=== PATIENT | male | born 1980 | race Caucasian/White ===

== ENCOUNTER 2018-02-14 12:33 | Inpatient (IN) | payer OTHER, MEDICAID ==
[2018-02-14] MEDS ORDERED: PROPARACAINE 0.5% 15 ML OPHT DROP OP ONE (13:41)
--- NOTE | 2018-02-14 14:04 | EDPHY ---
H & P Stated Complaint: pt c/o visual changes, hx of MS Time Seen by Provider: 02/14/18 13:28 HPI/ROS: Chief Complaint: Blurry vision, eye pain HPI: 37-year-old male with a history of multiple sclerosis is presenting with 4 days of worsening blurry vision and eye pain. Patient states symptoms are bilateral. He states that his central vision seems normal but his peripheral vision seems blurred. He is also having pain in the back of his eyes. No new numbness or weakness. He is seen by the neurologist in [place] however his or neurologist recently moved out of critical access hospital. He gets monthly Tysabri which she is scheduled for in 2 days. At baseline has some occasional urinary and stool incontinence which is unchanged. Has had some mild crusting discharge from his eyes. No itching. Is not been rubbing them. ROS: 10 point Review of Systems is negative except as noted in the HPI. PMH: Multiple sclerosis Social History: No smoking, no alcohol, no recreational drug use Family History: non-contributory Physical Exam: Gen: Awake, Alert, No Distress HEENT: Nose: no rhinorrhea Eyes: PERRLA, EOMI Visual Acuity: 20/20 OU EOM: Intact OU Visual Khan: Intact OU Pupil: Equal, round and reactive to light and accomodation OU External: Lids, lashes and margins normal OU Fundoscopy; patient unable to tolerate OU Slit Lamp; Normal Conjuctiva, Iris normal, Cornea normal, Anterior chambers clear without cells or flare, no hyphema, normal angles Tonometry: 19 in both eyes Mouth: Moist mucosa Neck: Supple, no JVD Chest: nontender, lungs clear to auscultation Heart: S1, S2 normal, no murmur Abd: Soft, non-tender, no guarding Back: no CVA tenderness, no midline tenderness Ext: no edema, non-tender Skin: no rash Neuro: CN II-XII intact, Sensation grossly intact, Strength 5/5 in bilateral upper and lower extremities - Personal History Current Tetanus Diphtheria and Acellular Pertussis (TDAP): Yes - Medical/Surgical History Hx Asthma: No Hx Chronic Respiratory Disease: No Hx Diabetes: No Hx Cardiac Disease: No Hx Renal Disease: No Hx Cirrhosis: No Hx Alcoholism: No Hx HIV/AIDS: No Hx Splenectomy or Spleen Trauma: No Other PMH: Multiple sclorosis - Social History Smoking Status: Former smoker Constitutional: Initial Vital Signs Temperature (C) 36.8 C 02/14/18 12:40 Heart Rate 105 H 02/14/18 12:40 Respiratory Rate 16 02/14/18 12:40 Blood Pressure 123/82 H 02/14/18 12:40 O2 Sat (%) 95 02/14/18 12:40 O2 Delivery Mode Room Air Allergies/Adverse Reactions: paroxetine [From Paxil] Allergy (Verified 02/14/18 12:38) Home Medications: Medication Instructions Recorded Celexa 02/14/18 Seroquel 02/14/18 Testosterone Cypionate 02/14/18 Tysabri 02/14/18 Vyvanse 02/14/18 Medical Decision Making ED Course/Re-evaluation: Case discussed with Dr. Dean Gordon, neurology. He is recommending that given the patient's history of MS in his symptomatology that he had be admitted for high-dose steroids. He will order MRIs and plan on consulting on the patient tomorrow. I have discussed with Dr. Lopez, hospitalist. She will admit to her service for continued care. - Data Points Medications Given: Discontinued Medications Proparacaine HCl (Alcaine 0.5%) 1 drops OP EDNOW ONE Stop: 02/14/18 13:42 Last Admin: 02/14/18 13:55 Dose: 1 drop Departure - Departure Disposition: [facility] Inpatient Acute Clinical Impression: Multiple sclerosis Condition: Fair Referrals: Karen Bryant MD [Primary Care Provider] - As per Instructions
[2018-02-14] MEDS ORDERED: ONDANSETRON DISINTEGRATING 4 MG TAB PO PRN (14:50)
[2018-02-14] MEDS ORDERED: ACETAMINOPHEN 325 MG TAB PO PRN (14:50)
[2018-02-14] MEDS ORDERED: ONDANSETRON 4 MG/2 ML VIAL IVP PRN (14:50)
[2018-02-14 15:11] LABS: PLATELET COUNT 208 10^3/uL (150-400)
[2018-02-14] MEDS ORDERED: CHOLECALCIFEROL 10000 UNIT PO SCH (15:30)
--- NOTE | 2018-02-14 16:00 | GHP ---
[f rep st] HISTORY AND PHYSICAL DATE OF ADMISSION: 02/14/2018 CHIEF COMPLAINT: Blurry vision, eye pain. HISTORY OF PRESENT ILLNESS: A 37-year-old male, history of multiple sclerosis, presenting with 1 week of progressive blurry vision and eye pain. He describes the pain in his eye as a headache behind his eyes, pulsating in nature. His vision has become progressively blurry, specifically in the periphery. Notes increased light sensitivity. He has had some drainage from his eyes that he thinks is clear. There has been a little bit of crusting at the corner, but not to the degree where his eyes are glued shut in the morning. Denies fevers, chills, or sweats. No nausea, vomiting, diarrhea. No numbness, tingling, falls. Has never been hospitalized before for multiple sclerosis. REVIEW OF SYSTEMS: I completed a 10-point review of systems, negative except as noted in the HPI. PAST MEDICAL HISTORY: 1. Multiple sclerosis, diagnosed in 2003. 2. Hypogonadism. 3. Vitamin D deficiency. 4. Bipolar type 1. 5. Depression. 6. ADHD. 7. Prior heavy alcohol use, now in AA. PAST SURGICAL HISTORY: None. FAMILY HISTORY: Maternal grandfather with diabetes. Paternal grandfather with CA, mental illness. SOCIAL HISTORY: Lives in [place]. 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 Has a master's degree. Vapes daily. No illicits or alcohol. HOME MEDICATIONS: Ibuprofen as needed, fish oil, multivitamin, Vyvanse 40 mg daily, vitamin D 10,000 units daily, Tysabri 300 mg IV q.28 days, testosterone 100 mg IM q.5 days, Seroquel 800 q.h.s., citalopram 40 daily. PHYSICAL EXAMINATION: VITAL SIGNS: Temperature 36.8, blood pressure 123/70, heart rate is 100, respirations 16, 95% on room. GENERAL: Well-appearing male , sitting up in bed, no acute distress. HEENT: PERRLA. Mild erythema at the corners of each eye. No purulence. No conjunctival injection. CV: Regular rate and rhythm. No murmurs, gallops, or rubs. LUNGS: Clear. ABDOMEN: Soft , nontender, nondistended. Positive bowel sounds. : No Correa. MUSCULOSKELETAL: 5/5 upper and lower extremity strength. NEUROLOGIC: Normal sensation to touch. 2 through 12 intact. PSYCH: Alert and oriented x3. LABORATORY DATA: WBC 9, hemoglobin 16, hematocrit 45, platelets 208. Sodium 141, potassium 4.3, chloride 103, carbon dioxide 28, BUN 13, creatinine 0.8, glucose 79, calcium 9.8. ASSESSMENT/PLAN: 1. Eye pain/blurry vision: concern for multiple sclerosis flare. Dr. Darnell spoke with Dr. Gordon who will formally evaluate the patient. MRI pending, start 1g Solu-Medrol daily. Does not appear to have conjunctivitis, but will provide Refresh eyedrops. 2. Hypogonadism. Testosterone q.5 days. 3. Bipolar 1 disorder. Resume home medications. 4. ADHD: he does not have Vyvanse with him. Will treat with Adderall here. May need to increase dose. 5. Vitamin D deficiency. Continue home supplementation. 6. Nicotine dependence: Nicotine patch. 7. Diet: Regular. 8. DVT prophylaxis: Low risk, ambulatory. DISPOSITION: Patient warrants inpatient admission given concern for acute multiple sclerosis flare warranting high-dose IV steroids for 3 days and a neurology consultation. /[id number]/MODL MTDD
[2018-02-14] MEDS: NICOTINE POLACRILEX 2 MG GUM B PRN ×3 (16:36→23:32)
--- NOTE | 2018-02-14 16:40 | PDMN ---
Medical Necessity Medical necessity: C/M review: Patient meets INPT criteria under [facility] Neurology GRG (Multiple scletrosis): Acute multiple sclerosis flare - acute and progressive eye pain/ blurry vision requiring planned Neurology consult, ongoing high dose IV Methylprednisolone QD for three days, comorbid one week of progressive blurry and eye pain prior to this admission, history of multiple sclerosis diagnosed in 2003, hypogonadism, bipolar 1 disorder, attention deficit hyperactivity disorder, vitamin D deficiency, nicotent dependence and prior heavy alcohol use, patient in AA. anticipates > 2 [place] LOS for ongoing med nec for eval and TX of above.
[2018-02-14] MEDS ORDERED: GADOBUTROL 10 ML VIAL IVP ONE (16:58)
[2018-02-14] MEDS ORDERED: ADDERALL 10 MG TAB PO SCH ×2 (17:28→17:30)
[2018-02-14] MEDS: methylPREDNISolone SOD SUCC 1 GM in D5W 100 ML IV SCH (18:03)
[2018-02-14] MEDS: OMEGA-3 FATTY ACIDS 1,000 MG CAP PO SCH (20:13)
[2018-02-14] MEDS: CARBOXYMETHYLCELLULOSE 1% 0.4 ML DROPERETTE EACHEYE PRN (20:21)
[2018-02-14] MEDS ORDERED: OMEGA PO SCH (21:00)
[2018-02-14] MEDS ORDERED: EPA PO SCH (21:00)
[2018-02-14] MEDS ORDERED: FISH OIL PO SCH (21:00)
[2018-02-14] MEDS ORDERED: DHA PO SCH (21:00)
[2018-02-14] MEDS: QUEtiapine FUMARATE 200 MG TAB PO SCH (23:33)
[2018-02-15] MEDS ORDERED: ADDERALL 10 MG TAB PO SCH (08:00)
[2018-02-15] MEDS ORDERED: NON-FORMULARY NEW DRUG (Citalopram Hydrobromide [Celexa] 40 MG) PO SCH (09:00)
[2018-02-15] MEDS: CITALOPRAM 20 MG TAB PO SCH (09:12)
[2018-02-15] MEDS: CHOLECALCIFEROL VIT D3 2,000 UNITS TAB/CAP PO SCH (09:13)
[2018-02-15] MEDS: OMEGA-3 FATTY ACIDS 1,000 MG CAP PO SCH ×2 (09:13→21:32)
[2018-02-15] MEDS: MULTIVITAMINS 1 EACH TAB PO SCH (09:13)
[2018-02-15] MEDS: CARBOXYMETHYLCELLULOSE 1% 0.4 ML DROPERETTE EACHEYE PRN ×2 (09:19→13:51)
[2018-02-15] MEDS: NICOTINE POLACRILEX 2 MG GUM B PRN ×6 (09:31→18:57)
--- NOTE | 2018-02-15 12:08 | NEUROPROG ---
Assessment: Jose [id number] - Neurology Consult: - CC: Dr. Kar Lopez consulted neurology for multiple sclerosis. Results placed in EMR for her review. - HPI: Pt with history of multiple sclerosis treated with Tysabri (has neurologist in [place], [place]) reported 1 week of progressive bilateral blurry vision and retro- orbital eye pain. His brain MRI w/ and w/o con on 02/14/18 showed changes consistent with mild chronic demyelinating disease but no acute enhancement. I initially saw the patient on 02/15/18. I had completed 1 day of IV steroids and felt his retro-orbital pain was improving but his visual blurriness was still present. He otherwise denied complaints. - PMHx: multiple sclerosis 2003, hypogonadism, bipolar, Vit D def, depression, ADHD - Home Meds: vyvanse, tysabri, testosterone, seroquel, celexa - SHx: prior alcoholism FHx: DM, DC, mental illness - ROS: Pt denied acute fever, total vision loss, active severe chest pain, respiratory failure, total body severe rash, total bowel/bladder incontinence, psychosis, active seizures, or active bleeding - O: VS reviewed General: Alert Eyes: Fundoscopic exam not able to visualize optic disks CV: Heart RRR, no murmur, no carotid bruit Lungs: Clear to auscultation bilaterally, no rhonchi or rales Neuro: - Mental: . Oriented x person/place/date . concentration appears normal . speech fluency/comprehension normal . memory appears normal . fund of knowledge appear intact - Cranial Nerves: . II: PERRL, VFFTC . III/IV/: EOMI, no nystagmus, normal smooth pursuits, no Ptosis . V: facial sensation intact to LT . VII: face symmetric to eye closure and smile . VIII: hearing intact to conversation . IX/X: uvula raises symmetrically . XI: SCM 5/5 B/L strength . XII: tongue protrudes midline w/nl strength - Motor: . Tone: normal tone in all 4 extremity . 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 No evidence of active demyelinating lesion. No involvement of the midbrain or cerebellum. No acute intracranial process. Specifically, no hemorrhage, ischemia, or mass. (I personally visualized the images on 02/15/18) - Assessment: 1. Multiple Sclerosis with presumed exacerbation on 02/14/18: Normal neurologic exam on 02/15/18. Brain MRI w/ and w/o con on 02/14/18 showed no contrast enhancing lesions. I still suspect his symptoms are an exacerbation of his known multiple sclerosis. I will complete 3 days of IV steroids and have him establish with our group multiple sclerosis expert after discharge. - Plan: - Solumederol 1,000 mg/day x 3 for presumed MS exacerbation, patient can discharge after completing this if he is doing well - F/U with Dr. Joby Muhammad or Kamaljit Pace 1-4 weeks after hospital discharge to manage multiple sclerosis and Tysabri Objective: Vital Signs Temp Pulse Resp BP Pulse Ox 36.8 C 125 H 16 128/84 H 95 02/15/18 11:32 02/15/18 11:32 02/15/18 11:32 02/15/18 11:32 02/15/18 11:32 Laboratory Results 02/14/18 15:00 02/14/18 15:00 02/14/18 02/15/18 02/16/18 05:59 05:59 05:59 Intake Total 500 Balance 500 Allergies/Adverse Reactions: paroxetine [From Paxil] Allergy (Verified 02/14/18 12:38)
[2018-02-15] MEDS: ADDERALL 20 MG TAB PO SCH (13:49)
--- NOTE | 2018-02-15 14:54 | HOSPPROG ---
Hospitalist Progress Note Assessment/Plan: 37y male with eye pain. First encounter, chart reviewed. D/W Dr Gordon #Blurry/pain eye -possible related to MS #MS -Appreciate Dr Gordon consult -cont IV steriods -one more dose 02/16/18 #ADHD -adderall #Bipolar -cont meds #Hx ETOH -sober #Dispo -home in afternoon tomorrow after steriods Subjective: Feeling better. Still blurry vision. Objective: Vital Signs Temp Pulse Resp BP Pulse Ox 36.8 C 125 H 16 128/84 H 95 02/15/18 11:32 02/15/18 11:32 02/15/18 11:32 02/15/18 11:32 02/15/18 11:32 Laboratory Results 02/14/18 15:00 02/14/18 15:00 02/14/18 02/15/18 02/16/18 05:59 05:59 05:59 Intake Total 500 Balance 500 - Physical Exam Constitutional: no apparent distress, appears nourished, not in pain Eyes: PERRL, anicteric sclera, EOMI Ears, Nose, Mouth, Throat: moist mucous membranes, hearing normal, ears appear normal Cardiovascular: No JVD, No tachycardia, No edema Respiratory: no respiratory distress, no rales or rhonchi, clear to auscultation Gastrointestinal: normoactive bowel sounds, No tenderness, No ascites Skin: warm, normal color, No mottled Neurologic: AAOx3 Psychiatric: interacting appropriately, not anxious, not encephalopathic, thought process linear ICD10 Worksheet Patient Problems: Problems Problem Status Onset Multiple sclerosis Acute
--- NOTE | 2018-02-15 15:32 | ASMTCMCOM ---
CM Note CM Note Notes: Chart reviewed Met with patient at length. He has bipolar disorder and is having trouble dealing with stressors . 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 Now that he is hospitalized they will attempt to draw money from his account. He is active with AA now. He wants a prescription for adderall at discharge, he currently sees Dr. Snider. Physically he moved independently, He will likely have no therapy needs. He has medicaid. He wants to look into housing that would provide him more social support. I suggested he look in to this process via [employer] or Food And Beverage Assistant at discharge. Likely no needs. Plan: TBD Date Signed: 02/15/2018 03:32 PM Electronically Signed By:Maribell Miguel RN
[2018-02-15] MEDS: methylPREDNISolone SOD SUCC 1 GM in D5W 100 ML IV SCH (16:10)
[2018-02-15] MEDS: QUEtiapine FUMARATE 200 MG TAB PO SCH (23:19)
--- NOTE | 2018-02-16 08:48 | NEUROPROG ---
Assessment: The patient has multiple sclerosis based on all the information we have, although we will ultimately want to see the outside records for clarification of some of the details. He has been stable and presented with radiographic findings rather than a clinical presentation for multiple sclerosis. Although fatigue is in extremely common complaint to multiple sclerosis, it would not usually be the presenting reason for the diagnosis to be made. However, he is now having some ocular complaints concerning for possible optic neuritis so it was felt justified to use IV Solu-Medrol for 3 days given the fact that he is also taking Tysabri. He reports that he is FREDDY virus antibody negative. I have reviewed this MRI in the hospital and he has no evidence of acute, active lesions but multiple bilateral periventricular and deep white matter lesions entirely consistent with the diagnosis of multiple sclerosis. He has a history of bipolar disease for which she has had 2 hospitalizations for acute fernando but says that he has a tendency to experience depression. Just several months ago he was hospitalized with fernando. He has a history of alcoholism for which she describes sobriety for 10 years with perhaps only 1 relapse. As recently as 4 months ago he had been using methamphetamine for several months and recognizes his addiction. He also has a history of heavy smoking of marijuana. He reports having multiple psychiatrists over the years but is not currently under the care of a psychiatrist and tells me that his new primary care provider, Dr. Ирина Bryant, has agreed to manage his psychoactive medications at this time, including stimulant medication. The patient says he had an open discussion on this issue and has requested that he have weekly follow-ups to help prevent him from the risk of recurrent addiction or abuse of medication. I explained to the patient that I believe he would be most appropriate for him to be under the care of a psychiatrist given his history of bipolar illness and hospitalization within the last 6 months for acute fernando, but he is going to try and work with primary care on this issue for now. I will copy my report to Dr. Bryant. I also made it clear to the patient who that I would not prescribe stimulant medications for him. If Dr. Bryant or a managing psychiatrists choose to prescribe the medications, then that is between the patient and his other physicians. I told him that with multiple sclerosis, there is a tendency for any stimulant medication to lose its benefits and then lead to further problems of getting off of the medication or potential for drug escalation which could be detrimental to his health in the long run. Occasionally drugs like amantadine can be helpful for fatigue but that usually does not have a sustained benefit. I would emphasize non pharmacologic approaches to help him address his fatigue like regular exercise and adequate rest. Of course, management of attention deficit disorder and bipolar illness are critical, and these are outside of my scope of practice, so I would again defer to Psychiatry or Dr. Bryant. I will be happy for him to follow up with Beto Pace and myself for the management of multiple sclerosis with follow-up imaging and arranging for the infusions with Gita terry. I told him to call the office to set up a follow-up appointment with Beto so we can help facilitate this. He agreed to this approach. Total unit time today of 30 min reviewing these issues as outlined above. The patient may be discharged today and should have a prednisone taper over the next week giving 40 mg for 2 days, 20 mg for 2 days, 10 mg for 2 days and then discontinue the steroid. Subjective: I have reviewed the patient's case and discussed in great detail his history of multiple sclerosis and treatment strategies that have been tried over time as well as his current concerns and questions. He is on his 3rd day out of 3 days of planned IV Solu-Medrol for possible optic neuritis with eye pain. He says that he still has some eye pain with eye movements. His original diagnosis of multiple sclerosis came about 4 years ago via a coincidental finding of lesions on the brain when he was being investigated for pituitary problems related to low testosterone. His main complaint at that time had been generalized sense of fatigue. He was working with Endocrinology. He also had an episode of diffuse body itching for which he never knew why. In retrospect, he has wondered if that might have been part of multiple sclerosis. In any case, brain imaging had shown brain lesions consistent with multiple sclerosis even though he had not had a distinct clinical event. Further investigations with follow-up imaging as well as lumbar spinal fluid analysis has reportedly shown changes of multiple sclerosis. After seeing a [place] neurologist he sought another opinion in [facility] with an multiple sclerosis expert who also confirmed the diagnosis as definite multiple sclerosis in his opinion and the patient had been further sharing images with a relative who is a radiologist. His 1st treatment about 4 years ago was with Copaxone but he had systemic, uncomfortable side effects and stopped that and also similar inability to tolerate Tecfidera. About 3 and half years ago he started on the Tysabri. He is continued these infusions in the [place] area but his [place] neurologist has now left to go back to [place] and he needs to establish with a new neurologist. He was seen yesterday by Dr. Gordon, who is recommending follow-up with me and with our physician teachers assistant for the longer term multiple sclerosis management. He is due for his next infusion tomorrow, but he is deferring that and will make arrangements for that in [place] prior to our transferring the infusions of the Tysabri to [place]. Objective: Vital Signs Temp Pulse Resp BP Pulse Ox 36.7 C 106 H 15 137/73 H 95 02/16/18 08:00 02/16/18 08:00 02/16/18 08:00 02/16/18 08:00 02/16/18 08:00 Laboratory Results 02/14/18 15:00 02/14/18 15:00 02/15/18 02/16/18 02/17/18 05:59 05:59 05:59 Intake Total 500 1500 Balance 500 1500 Pupils are 4 mm and reactive. Extraocular movements are intact. He is alert and attentive with clear and fluent speech. Allergies/Adverse Reactions: paroxetine [From Paxil] Allergy (Verified 02/14/18 12:38)
[2018-02-16] MEDS: CITALOPRAM 20 MG TAB PO SCH (09:04)
[2018-02-16] MEDS: CHOLECALCIFEROL VIT D3 2,000 UNITS TAB/CAP PO SCH (09:04)
[2018-02-16] MEDS: NICOTINE POLACRILEX 2 MG GUM B PRN ×7 (09:04→17:23)
[2018-02-16] MEDS: ADDERALL 20 MG TAB PO SCH ×2 (09:05→13:53)
[2018-02-16] MEDS: OMEGA-3 FATTY ACIDS 1,000 MG CAP PO SCH (09:05)
[2018-02-16] MEDS: MULTIVITAMINS 1 EACH TAB PO SCH (10:08)
--- NOTE | 2018-02-16 12:06 | HOSPPROG ---
Hospitalist Progress Note Assessment/Plan: 37y male with eye pain. First encounter, chart reviewed. Reviewed Dr. Muhammad consult note today. Appreciate his guidance and input # concern for optic neuritis Blurry/pain eye -possible related to MS -today is day # 3 for high dose IV steroids -pain is gone, but still has some blurriness -will have him see and Cheese Production Supervisor #MS -to f/u with Beto STRANGE with the neurology group -he was scheduled to get an infusion of Tysabri in [place], but has moved to [place] and wants to get his care here #ADHD -Adderall -concern about this medication in the setting of his Bipolar disorder -he doesn't want to see a psychiatrist -feels very comfortable with Dr Bryant and wants to work with him #Bipolar -cont meds #Hx ETOH -sober #Dispo -dc today after he gets his IV infusion. Will give him the phone # of a local eye doctor, has an appointment with Dr Bryant this Friday. Subjective: Richie feels overall much better today. Objective: Vital Signs Temp Pulse Resp BP Pulse Ox 36.7 C 106 H 15 137/73 H 95 02/16/18 08:00 02/16/18 08:00 02/16/18 08:00 02/16/18 08:00 02/16/18 08:00 Laboratory Results 02/14/18 15:00 02/14/18 15:00 02/15/18 02/16/18 02/17/18 05:59 05:59 05:59 Intake Total 500 1500 Balance 500 1500 - Physical Exam Constitutional: no apparent distress, appears nourished, not in pain Eyes: PERRL Ears, Nose, Mouth, Throat: hearing normal Cardiovascular: regular rate and rhythym Respiratory: no respiratory distress Skin: warm Musculoskeletal: full muscle strength Neurologic: AAOx3 Psychiatric: interacting appropriately ICD10 Worksheet Patient Problems: Problems Problem Status Onset Multiple sclerosis Acute
--- NOTE | 2018-02-16 14:35 | GDS ---
[f rep st] DISCHARGE SUMMARY DISCHARGE DIAGNOSES: 1. Concern for optic neuritis with associated blurry vision. 2. Multiple sclerosis, concern for exacerbation. 3. Attention deficit-hyperactivity disorder. 4. Bipolar disorder. 5. History of alcohol use. CONSULTATIONS: Dr. Dean Gordon. HISTORY OF PRESENT ILLNESS: Briefly, the patient is a 37-year-old male, with a history of multiple sclerosis, who presented with 1 week of progressive blurry vision and eye pain. He describes the pain as a headache behind his eyes, pulsating in nature. He was admitted for further evaluation. He had an MRI performed. This showed mild supratentorial white matter disease in the pericallosal distribution of the deep white matter, characteristic of multiple sclerosis. He had no evidence of active demyelinating lesion, no involvement at the midbrain or cerebellum. He was seen and evaluated by the neurology team. He was treated with IV steroids. Today, the pain has left behind his eyes. He is still having some blurry vision. Have referred him out to see an eye doctor. HOSPITAL COURSE PER PROBLEM: 1. Concern for optic neuritis with blurry vision and eye pain. This is possibly related to his multiple sclerosis. He has received 3 days of high- dose IV steroids. Further follow up with an dope sprayer in the outpatient setting. 2. Multiple sclerosis, possible exacerbation. He will get an infusion of Tysabri in the outpatient setting when he follows up with Dr. Muhammad. 3. Attention deficit-hyperactivity disorder, on Adderall. 4. Bipolar disorder. Resumed home medications. 5. History of alcohol use. Sober. DISCHARGE CONDITION: VITAL SIGNS: Stable. Blood pressure is 137/73, heart rate of 106, O2 saturation on room air 95%, temperature 36.7 Celsius. MEDICATIONS AT DISCHARGE: Please see the EMR. DISCHARGE INSTRUCTIONS: 1. To follow up with an eye doctor and make an appointment today and given several resources. 2. To follow up with Dr. Joby Muhammad. 3. If he develops fever, chills, chest pain, shortness of breath or worsening vision, to return to the ER. /[id number]/MODL MTDD
[2018-02-16] MEDS: methylPREDNISolone SOD SUCC 1 GM in D5W 100 ML IV SCH (15:45)
[2018-02-16 16:06] VITALS: BP 120/73
--- NOTE | 2018-02-16 16:34 | ASMTCMCOM ---
CM Note CM Note Notes: Pt medically stable for d/c, no CM d/c needs identified. Date Signed: 02/16/2018 04:34 PM Electronically Signed By:MERNA Suazo
== END 2018-02-16 18:49 | disposition home or self-care (01) | DRG 59 ==
LOC: OBSVTOIN 14:48 → F3N 15:20
PROVIDERS: ADMIT Internal Medicine; ATTEND Internal Medicine
DX: G35 Multiple sclerosis (principal); H46.9 Unspecified optic neuritis; H53.8 Other visual disturbances; H57.13 Ocular pain, bilateral; R32 Unspecified urinary incontinence; R15.9 Full incontinence of feces; F31.9 Bipolar disorder, unspecified; F90.1 Attention-deficit hyperactivity disorder, predominantly hyperactive type; E29.1 Testicular hypofunction; E55.9 Vitamin D deficiency, unspecified; F10.21 Alcohol dependence, in remission; F17.290 Nicotine dependence, other tobacco product, uncomplicated; F12.21 Cannabis dependence, in remission; Z79.52 Long term (current) use of systemic steroids
CPT/HCPCS: A9585; J2930